=== PATIENT | female | born 1985 | race Caucasian/White ===

== ENCOUNTER 2018-11-22 11:49 | Emergency (ER) | payer BC, SELFPAY ==
[2018-11-22 11:55] VITALS: BP 155/78; PULSE 118; RESP 16; TEMP 36.8; O2SAT 100
--- NOTE | 2018-11-22 12:03 | ED.GENADUL_ITS ---
Discharge Plan Disposition Patient Disposition: HOME Condition: Stable Discharge Details Chief Complaint: Urinary Clinical Impression: UTI (urinary tract infection) Primary Care Provider: Unknown,Unknown ED Provider: Candido Hampton Home Meds and New Rx's Prescriptions: New cephalexin 500 mg capsule 500 mg PO TID 7 Days Qty: 21 RF: 0 Continued clotrimazole-betamethasone [Lotrisone] 45 GM cream 1 gm Topical BID Qty: 1 RF: 0 Discharge Instructions Instructions: Urinary Tract Infection in Women (ED) Additional Instructions: Small, frequent sips of fluids today. Return for any acute concerns. Please take antibiotics as prescribed Medical Decision Making 33yof presents with 2-3 days of dysuria. She is well appearing, traiged with mildly elevated pulse rate, improved at rest during exam. Patient does note to me some mild white coat anxieties. Abdomen exam is benign. UA obtained, consistent with acute UTI. Patient is not . Will treat with a course of antibiotics. She is stable for outpatient management. HPI General Mode of arrival: ambulatory . Date/Time Provider Initiated Documentation: 11/22/18 11:50 . Limitations to Documentation: no limitations . Information obtained by: patient . History of Present Illness 33 year old F presents to the emergency department with the chief complaint of Urinary infection for 2-3 days, described as moderate, Quality is described as burning, and is localized to the pelvis. Patient reports no radiation. Patient started experiencing this day(s) and it has been intermittent. No relieving factors improve symptom(s), No exacerbating factors reported . Patient notes denies fever/chills. Patient did receive the following treatments prior to arrival, none Related Data Home Medications Medication Instructions Recorded Confirmed clotrimazole-betamethasone 1 gm TOPICAL BID #1 tube 07/08/13 11/22/18 [Lotrisone] cephalexin 500 mg PO TID 7 Days #21 cap 11/22/18 Previous Rx's Medication Instructions Recorded cephalexin 500 mg PO TID 7 Days #21 cap 11/22/18 Allergies Allergy/AdvReac Type Severity Reaction Status Date / Time sulfamethoxazole Allergy Unverified 11/22/18 11:57 [From Bactrim] trimethoprim [From Bactrim] Allergy Unverified 11/22/18 11:57 General Stated Complaint: Urinary ANDRAE: 4 Review of Systems Review of Systems 6 systems reviewed and otherwise neg PFSH Social History Smoking and Tabacco status: Never Exam Narrative Exam Narrative: GEN: awake, alert, oriented 3. Pleasant, well groomed, interactive. HEAD: Normocephalic, atraumatic ENT: Mucous membranes moist, oropharynx unremarkable, External ear exam unremarkable EYES: PERRL, EOMI NECK: Full ROM, no KEN, no menigismus CHEST/RESP: Nontender, clear to auscultation bilateral, no wheeze/rhonchi/rales CARDIOVASCULAR: RRR, no murmur, rub janey. 2+ Rad pulse bilateral ABDOMEN: Soft, nontender, no mass. +Bowel sounds EXT: Full ROM, no edema, no rash Neuro: Grossly normal neurologic exam, conversant, interactive. Psych: Speech fluent, thoughts congruent, affect normal Course Vital Signs Temperature 36.8 C 11/22/18 11:55 Pulse 118 H 11/22/18 11:55 Respiratory Rate 16 11/22/18 11:55 Blood Pressure 155/78 H 11/22/18 11:55 Pulse Oximetry 100 11/22/18 11:55 Temperature 36.8 C 11/22/18 11:55 Temperature Source Skin 11/22/18 11:55 Pulse 118 H 11/22/18 11:55 Respiratory Rate 16 11/22/18 11:55 Respiratory Effort Non-Labored 11/22/18 11:55 Blood Pressure 155/78 H 11/22/18 11:55 Blood Pressure Position Sitting 11/22/18 11:55 Pulse Oximetry 100 11/22/18 11:55 Oxygen Delivery Method Room Air 11/22/18 11:55 Oxygen Flow Rate 0 11/22/18 11:55 Pain Level 2 11/22/18 11:58
[2018-11-22 12:12] LABS: Bilirubin Negative (Negative); Blood Small (Negative); Clarity Clear; Glucose Negative (Negative); Ketones Negative (Negative); Leukocyte Esterase Small (Negative); Nitrite Negative (Negative); Urobilinogen 0.2 EU/dL (Up TO 0.2)
[2018-11-22 12:17] LABS: Bacteria Rare HPF (Negative); C & S Indicated? No/Sq. Contamination; Casts Negative LPF (Negative); Crystals Negative HPF (Negative); Epithelial Cells Many HPF (Negative); Mucus Negative (Negative)
== END 2018-11-22 12:26 | disposition home or self-care (01) ==
PROVIDERS: Emergency Provider Emergency Medicine
DX: N39.0 Urinary tract infection, site not specified (principal)
CPT/HCPCS: 81025; 99283; 81003; 81015

== ENCOUNTER 2020-08-15 16:27 | Outpatient (REF) | payer BC, SELFPAY | END 2020-08-15 16:47 | LOC: NCHCN 16:27 | PROVIDERS: Visit Provider Nurse Practitioner Family | DX: N39.0 Urinary tract infection, site not specified (principal) | CPT/HCPCS: 87086 ==

== ENCOUNTER 2021-07-04 22:47 | Outpatient (REF) | payer BC, SELFPAY ==
[2021-07-04 23:02] LABS: Abs Immature Grans 0.01 10^3/uL (0.0-0.06); Absolute Basophil Count 0.03 10^3/uL (0.0-0.2); Absolute Eosinophil Count 0.07 10^3/uL (0.0-0.7); Absolute Lymphocyte Count 1.28 10^3/uL (1.2-3.4); Absolute Monocyte Count 0.44 10^3/uL (0.1-0.8); Absolute Neutrophil Count 3.11 10^3/uL (1.2-6.7); Basophils % 0.6; Eosinophils % 1.4; HCT 38.5 % (36.0-46.0); HGB 12.4 g/dL (11.2-15.7); Immature Grans % 0.2; Lymphocytes % 25.9; MCH 27.2 pg (27.0-33.0); MCHC 32.2 % (32.0-36.0); MCV 84.4 fL (80-95); MPV 10.8 fL (8.0-11.0); Monocytes % 8.9; Nucleated RBC 0 %; Platelet Count 224 10^3/uL (130-400); RBC 4.56 10^6/uL (3.93-5.22); RDW-SD 46.5 fL; WBC 4.94 10^3/uL (4.4-10.8)
[2021-07-04 23:20] LABS: ALT 21 U/L (14-59); AST 21 U/L (15-37); Albumin 4.3 g/dL (3.4-5.0); Alkaline Phosphatase 49 U/L (46-116); BUN 8 mg/dL (7-18); Bilirubin, Total 0.3 mg/dL (0.2-1.0); CREATININE 0.7 mg/dL (0.55-1.02); Calcium 8.7 mg/dL (8.5-10.1); Chloride 105 mmol/L (98-107); Glucose 85 mg/dL (74-106); Potassium 3.5 mmol/L (3.5-5.1); Sodium 140 mmol/L (136-145); Total Protein 7.8 g/dL (6.4-8.2)
[2021-07-04 23:49] LABS: FREE T4 0.95 ng/dL (0.76-1.46)
== END 2021-07-04 22:48 | disposition home or self-care (01) ==
LOC: NCHCN 22:47
PROVIDERS: PCP Physician Assistant; Visit Provider Physician Assistant
DX: R13.10 Dysphagia, unspecified (principal); R53.83 Other fatigue
CPT/HCPCS: 80053; 84439; 84443; 85025

== ENCOUNTER 2021-12-28 17:47 | Outpatient (REF) | payer BC, SELFPAY ==
--- NOTE | 2021-12-28 15:45 | PAPFT_PTH ---
PATIENT: Raquel Mendez LOC: [facility] U#:[id number] AGE/SX: 36/F ROOM: RE12/28/[address]: Josephine Evans, PhD MICRO[employer] ANALYST : 1985 BED: DIS: 12/28/2021 SPEC #: [id number] RECD: 12/28/21 17:51 STATUS: KAUR CARLIN #: [id number] EMILI: 12/28/21 15:[address]: Josephine Evans [facility]PT[facility] Cytology RECD BY: Ashley Ortiz ENTERED: 12/28/21 17:52 SP TYPE: PAPFT OTHR DR: Shilpi Tate, ZURI Tissues: 1 - CX/ENDOCX FOR PAP SMEARS Procedures: PAP THIN PREP/[facility] Screening HPV DNA PROBE Comments: [id number]
== END 2021-12-28 17:48 | disposition home or self-care (01) ==
LOC: LBN 17:47
PROVIDERS: Visit Provider Nurse Practitioner
DX: Z12.4 Encounter for screening for malignant neoplasm of cervix (principal); Z11.51 Encounter for screening for human papillomavirus (HPV)
CPT/HCPCS: 88142; 87624

== ENCOUNTER 2023-10-14 14:46 | Outpatient (REF) | payer BC, SELFPAY ==
[2023-10-14 21:26] LABS: ALT 30 U/L (14-59); AST 37 U/L (15-37); Alkaline Phosphatase 79 U/L (46-116); Anion Gap 8.3 mmol/L (3-11); BUN 11 mg/dL (7-18); CO2 26.7 mmol/L (21.0-32.0); CREATININE 0.7 mg/dL (0.55-1.02); Calcium 8.7 mg/dL (8.5-10.1); Calculated LDL 95 mg/dL (<100); Chloride 104 mmol/L (98-107); Cholesterol 169 mg/dL (<200); Estimated GFR 113.46 (mL/min/1.73m2); Glucose 115 mg/dL (74-106); HDL Cholesterol 61 mg/dL (40-60); Potassium 3.6 mmol/L (3.5-5.1); Sodium 139 mmol/L (136-145); Total Protein 7.5 g/dL (6.4-8.2); Triglyceride 69 mg/dL (<150)
[2023-10-14 21:37] LABS: Bilirubin, Total 0.4 mg/dL (0.2-1.0)
[2023-10-15 08:42] LABS: Lab Add On Test DONE
[2023-10-15 09:54] LABS: Hemoglobin A1C 5.2 % (<5.7)
== END 2023-10-14 14:47 | disposition home or self-care (01) ==
LOC: LBN 14:46
PROVIDERS: PCP Nurse Practitioner Family; Visit Provider Nurse Practitioner Family
DX: Z00.00 Encounter for general adult medical examination without abnormal findings (principal); R73.09 Other abnormal glucose; Z13.220 Encounter for screening for lipoid disorders
CPT/HCPCS: 80053; 80061; 83036